=== PATIENT | male | born 1990 | race Caucasian/White ===

== ENCOUNTER 2018-09-24 13:20 | Outpatient (CLI) | payer MEDICARE, MEDICAID ==
[~2018-09-24 13:20] MED LIST: ACET325T54 PO
== END 2018-09-24 23:59 | disposition home or self-care (01) ==
LOC: VAS 13:20
PROVIDERS: ATTEND Family Medicine
DX: M79.661 Pain in right lower leg (principal); R60.0 Localized edema
CPT/HCPCS: 93971

== ENCOUNTER 2023-06-23 09:28 | Emergency (ER) | payer MEDICARE, MEDICAID ==
[~2023-06-23] VITALS: Ht 180.3 cm; Wt 60.0 kg
[2023-06-23 11:37] VITALS: BP 115/79; PULSE 68; RESP 18; TEMP 98.2; O2SAT 100
[2023-06-23] MEDS ORDERED: ibuprofen tablet 400 MG TABLET PO ONE (13:05)
== END 2023-06-23 13:41 | disposition home or self-care (01) ==
LOC: ER 09:29
DX: S62.616A Displaced fracture of proximal phalanx of right little finger, initial encounter for closed fracture (principal); V98.8XXA Other specified transport accidents, initial encounter; Y93.89 Activity, other specified; Y92.89 Other specified places as the place of occurrence of the external cause; Y99.8 Other external cause status
CPT/HCPCS: 29130; 73140; 99283

== ENCOUNTER 2025-01-15 07:15 | Emergency (ER) | payer MEDICAID, MEDICARE ==
[~2025-01-15] VITALS: Ht 180.3 cm; Wt 63.6 kg
[2025-01-15] MEDS: LIDOcaine 1% W/epiNEPHrine 1:100,000 20ml vial SQ ONE (07:45)
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
[2025-01-15 10:11] VITALS: BP 118/68; PULSE 81; RESP 16; TEMP 98; O2SAT 99
== END 2025-01-15 10:08 | disposition home or self-care (01) ==
LOC: ER 07:15
DX: S01.81XA Laceration without foreign body of other part of head, initial encounter (principal); I10 Essential (primary) hypertension; X58.XXXA Exposure to other specified factors, initial encounter; Y93.89 Activity, other specified; Y92.89 Other specified places as the place of occurrence of the external cause; Y99.8 Other external cause status
CPT/HCPCS: 12011; 99282; A6402; Z7610; 99284; A6449

== ENCOUNTER 2025-01-21 07:55 | Emergency (ER) | payer MEDICARE ==
[~2025-01-21] VITALS: Ht 180.3 cm; Wt 68.2 kg
[2025-01-21 07:57] VITALS: TEMP 98
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
[2025-01-21 08:45] VITALS: BP 127/80; PULSE 72; RESP 15; O2SAT 98
== END 2025-01-21 08:46 | disposition home or self-care (01) ==
LOC: ER 07:55
DX: S01.81XD Laceration without foreign body of other part of head, subsequent encounter (principal); X58.XXXD Exposure to other specified factors, subsequent encounter
CPT/HCPCS: 99281